=== PATIENT | male | born 1980 | race Caucasian/White ===

== ENCOUNTER 2016-10-31 17:52 | Inpatient (IN) | payer OTHER ==
--- NOTE | ~2016-10-31 | CR72 ---
[facility] A Service of [facility] RADIOLOGY TEXT RESULTS PATIENT: REBA PRESTON LOCATION: [facility] [address]64-85 : [birth year] UNIT #: [id number] AGE: [address]: Emperatriz Calles MD SEX: M ORDER DR: [id number] [facility] [address] [place], [place] [address] [id number] I MR#: [id number] Acc #: [id number] NAME: REBA PRESTON : 1980 SEX: M STUDY DATE/TIME: 10/31/2016 21:19 UNIT: [facility] ROOM: [id number] STUDY DESCRIPTION: CR Chest Single View Portable Attending Physician: Emperatriz Calles M.D. Ordering Physician: Audra Stewart M.D. Primary Care Physician: Gonzalez Yang M.D. MEDICAL IMAGING REPORT This report is preliminary unless electronic signature is present EXAM Portable chest x-ray 10/31/2016 HISTORY Fever. Seizure today. Weakness. FINDINGS AP radiograph of the chest is presented. Comparison 10/23/2014. No acute-appearing bony abnormality. Heart hifhcj-lg-utgqj limits of normal in size. Lung volumes moderate. Pulmonary vasculature is prominent, greater than anticipated for the relatively low lung volumes. Some degree of pulmonary vascular congestion is felt to be present. There are increased interstitial markings, more pronounced in the left than the right and there are some patchy densities at the left lung base. Findings concerning for mild pulmonary edema involving predominately the interstitium. Patchy densities at the left lung base probably combination of atelectasis and airspace edema. Given the patient's stated history of seizure and fever, correlate with any clinical concern for aspiration. No pleural effusion or pneumothorax. Dictated by... Shade Novoa M.D. THIS IS AN ELECTRONICALLY VERIFIED REPORT Shade Novoa M.D. at 11/01/2016 3:05 PM DELLA/racheal TD: 11/01/2016 01:56 JOB #: [id number] [facility] A Service of [facility] RADIOLOGY TEXT RESULTS PATIENT: REBA PRESTON LOCATION: [facility] [address]704-92 : 80 UNIT #: [id number] AGE: [address]: Emperatriz Calles MD SEX: M ORDER DR: MEDICAL IMAGING REPORT Page 1 of 1 COPY
--- NOTE | ~2016-10-31 | CT71 ---
[facility] A Service of [facility] RADIOLOGY TEXT RESULTS PATIENT: BALDEMAR PRESTON LOCATION: [facility] : 80 UNIT #: [id number] AGE: [address]: Emperatriz Calles MD SEX: M ORDER DR: [id number] [facility] [address] [place], [place] [address] [id number] I MR#: [id number] Acc #: [id number] NAME: BALDEMAR PRESTON : 1980 SEX: M STUDY DATE/TIME: 10/31/2016 17:20 UNIT: [facility] ROOM: [id number] STUDY DESCRIPTION: CT Head Wo Contrast Attending Physician: Emperatriz Calles M.D. Ordering Physician: Audra Stewart M.D. Primary Care Physician: Gonzalez Yang M.D. MEDICAL IMAGING REPORT This report is preliminary unless electronic signature is present EXAM Head CT no contrast, 10/31/[address] dated 10/23/2014 PROCEDURE Routine unenhanced head CT. This CT exam was performed with one or more of the following radiation dose reduction techniques: Automatic exposure control, adjustment of mA and/or kV according to patient size, and iterative reconstruction. Clinical History Seizure today, history of epilepsy. FINDINGS The skull base and calvarium are normal. There is a right ocular scleral band, but the extracranial soft tissues are otherwise unremarkable. Brain parenchymal density is normal. IMPRESSION 1. Normal negative unenhanced head CT. 2. Incidentally noted right ocular scleral band, but no acute abnormality is seen. Dictated by... Baldemar Perkins M.D. THIS IS AN ELECTRONICALLY VERIFIED REPORT Baldemar Perkins M.D. at 11/01/2016 3:54 PM TEV/psc [facility] A Service [facility] RADIOLOGY TEXT RESULTS PATIENT: BALDEMAR PRESTON LOCATION: [facility] : [birth year] UNIT #: [id number] AGE: [address]: Emperatriz Calles MD SEX: M ORDER DR: TD: 10/31/2016 21:58 JOB #: [id number] MEDICAL IMAGING REPORT Page 1 of 1 COPY
--- NOTE | ~2016-10-31 | CT114 ---
[facility] A Service of [facility] & [facility] RADIOLOGY TEXT RESULTS PATIENT: REBA PRESTON LOCATION: [facility] [address]-65 : 80 UNIT #: [id number] AGE: [address]: Emperatriz Calles MD SEX: M ORDER DR: [id number] [id number] [place], [place] [address] [id number] I MR#: [id number] Acc #: [id number] NAME: REBA PRESTON : 1980 SEX: M STUDY DATE/TIME: 10/31/2016 20:24 UNIT: [facility] ROOM: [id number] STUDY DESCRIPTION: CT Soft Tissue Neck W Cont Attending Physician: Emperatriz Calles M.D. Ordering Physician: Audra Stewart M.D. Primary Care Physician: Gonzalez Ynag M.D. MEDICAL IMAGING REPORT This report is preliminary unless electronic signature is present EXAM CT neck with contrast. DATE 10/31/2016 HISTORY 36-year-old male with right-side neck pain today. Seizure today. Soft tissue mass versus abscess. COMPARISON CT neck without and with contrast 08/26/2010. PROCEDURE 3 mm axial images from the base of the skull through the superior mediastinum after IV contrast administration. Sagittal and coronal reformed images were obtained. This CT exam was performed with one or more of the following radiation dose reduction techniques: automatic exposure control, adjustment of mA and/or kV according to patient size, and iterative reconstruction. FINDINGS An oval well-circumscribed 3.2 cm x 2.3 cm x 3.1 cm cystic or necrotic mass lesion is seen within the right mid neck just deep to the skin surface, superficial to the platysma. This is thought to correspond to the patient's site of palpable complaint. Shotty cervical adenopathy is present elsewhere within the neck, but no additional pathologic adenopathy is seen. The superior mediastinum appears within normal limits. The tonsillar pillars, larynx, epiglottis, all appear within normal limits. Parapharyngeal fat planes are preserved. Major vascular structures appear well opacified and patent. [facility] A Service of [facility] & [facility] RADIOLOGY TEXT RESULTS PATIENT: REBA PRESTON LOCATION: [facility] [address]37-56 : [birth year] UNIT #: [id number] AGE: [address]: Emperatriz Calles MD SEX: M ORDER DR: Bilateral parotid and submandibular glands and the thyroid gland are unremarkable. Mild generalized centrilobular emphysematous changes are seen in the imaged lung apices. There is mild accentuation of the normal cervical lordosis, with degenerative disc and endplate changes at C4-5 and C5-6. Prominent anterior osteophyte formation is present at C4-5. Posterior osteophyte formation is present at C3-4, C4-5, C5-6 and C6-7. There are surgical changes of the right globe. Jroh-aw-dfqxlebn ethmoid sinus mucosal thickening. Mastoid air cells appear clear. IMPRESSION 1. Cystic or necrotic superficial nodule in the right mid neck measuring 3.2 cm x 2.3 cm x 3.1 cm. It would be easily amenable to ultrasound-guided fine needle aspiration. 2. No additional soft tissue mass or adenopathy is seen elsewhere within the neck. 3. Surgical changes of the right globe. 4. Mild to xfjx-rx-qfkxiyhg ethmoid sinus mucosal thickening. 5. Degenerative changes of the cervical spine. 6. Mild centrilobular emphysematous changes in the imaged upper lungs. Dictated by... Elysia Garcia M.D. THIS IS AN ELECTRONICALLY VERIFIED REPORT Elysia Garcia M.D. at 11/01/2016 7:11 AM ALEX/racheal TD: 11/01/2016 00:48 JOB #: [id number] MEDICAL IMAGING REPORT Page 1 of 1 COPY
[2016-10-31 17:13] LABS: ARTERIAL BLD GAS O2 SATURATION 93.3 % (90.0-100.0); ARTERIAL BLOOD GAS CARBOXY HB 1.4 %sat (0.0-9.0); ARTERIAL BLOOD GAS HCO3 25.2 mmol/L; ARTERIAL BLOOD GAS MET HB 0.7 %sat (0.0-2.0); ARTERIAL BLOOD GAS PCO2 38.6 mmHg (35.0-45.0); ARTERIAL BLOOD GAS pH 7.423 (7.350-7.450)
[2016-10-31 17:14] LABS: ARTERIAL BLOOD GAS PO2 71.3 mmHg (80.0-100)
[2016-10-31 17:15] LABS: ARTERIAL BLOOD GAS ALLEN TEST NORMAL; ARTERIAL BLOOD GAS ART SITE LEFT RADIAL; ARTERIAL BLOOD GAS DELIVERY ROOM AIR; ARTERIAL DRAW? YES
[2016-10-31 17:20] LABS: URINE SOURCE CLEAN CATCH
[2016-10-31 17:43] LABS: BASOPHIL# 0.1 X10e3 (0-0.3); BASOPHIL% 0.3 % (0-2.5); DIFF IND YES; EOSINOPHIL# 0.1 X10e3 (0-0.7); EOSINOPHIL% 0.3 % (0.0-7.0); HEMATOCRIT 43.1 % (38.0-50.0); LYMPHOCYTE% 13.9 % (17.0-45.0); MEAN CELL VOLUME 96.5 FL (83-96); MEAN CORPUSCULAR HEMOGLOBIN 31.3 PG (28-34); MEAN CORPUSCULAR HGB CONC 32.4 g/dL (30-36); MEAN PLATELET VOLUME 9.1 FL (6.5-11.5); MONOCYTE# 1.3 X10e3 (0-1.0); MONOCYTE% 6.2 % (3.0-12.0); NEUTROPHIL# 16.9 X10e3 (1.5-7.1); NEUTROPHIL% 79.3 % (40-75); PLATELET COUNT 225 X10e3 (140-420); RED BLOOD COUNT 4.47 X10e (3.90-5.60); RED CELL DISTRIBUTION WIDTH 13.9 % (11.0-15.5); WHITE BLOOD COUNT 21.3 X10e3 (4.0-10.5)
[2016-10-31 17:52] LABS: URINE APPEARANCE CLOUDY; URINE BILIRUBIN NEG (NEG); URINE BLOOD 2+ (NEG); URINE COLOR YELLOW; URINE GLUCOSE NEG (NEG); URINE KETONE TRACE (NEG); URINE LEUKOCYTE ESTERASE NEG (NEG); URINE NITRATE NEG (NEG); URINE PROTEIN 2+ (NEG); URINE SPECIFIC GRAVITY 1.018 (1.003-1.035); URINE UROBILINOGEN 0.2 MG/DL (NEG)
[2016-10-31 17:54] LABS: URINE BACTERIA AUWI NEG (NEGATIVE); URINE SQUAMOUS EPITHELIAL CELL FEW /[HPF]
[2016-10-31 17:57] LABS: AMPHETAMINE NEG (NEG); BARBITURATES NEG (NEG); BENZODIAZEPINES NEG (NEG); COCAINE NEG (NEG); MARIJUANA NEG (NEG); OPIATES NEG (NEG); TRICYCLIC ANTIDEPRESSANTS NEG (NEG); U METHADONE NEG (NEG)
[2016-10-31 18:01] LABS: CULTURE INDICATED? NO; U HYALINE CASTS AUWI 0-2 /[LPF]; URINE RED BLOOD CELL CAST 0-2 /[HPF]
[2016-10-31 18:07] LABS: POC - CKMB 2.4 ng/mL (0.0-7.9); POC - TROPONIN <0.05 ng/mL (<=0.05)
[2016-10-31 18:17] LABS: PLATELET ESTIMATE NORMAL (NORMAL); RBC NORMAL YES
[2016-10-31 18:21] LABS: INR 0.9; PARTIAL THROMBOPLASTIN TIME 25.1 SECONDS (23.5-31.3); PROTHROMBIN TIME (PATIENT) 9.6 SECONDS (9.6-11.5)
[2016-10-31 18:40] LABS: CALCIUM SERUM 9.2 mg/dL (8.4-10.2); CARBON DIOXIDE 23 mmol/L (22-31); CHLORIDE 104 mmol/L (100-111); POTASSIUM 3.9 mmol/L (3.5-5.1); SODIUM 140 mmol/L (135-145)
[2016-10-31 18:52] LABS: ACETAMINOPHEN <10 ug/mL; ALBUMIN SERUM 4.3 g/dL (3.5-5.0); ALCOHOL BLOOD <5 mg/dL (0); ALKALINE PHOSPHATASE 79 U/L (32-92); ALT (SGPT) 30 U/L (10-40); AST (SGOT) 32 U/L (10-42); BILIRUBIN, DIRECT 0.1 mg/dL (0.0-0.2); BILIRUBIN,INDIRECT 0.2 mg/dL (0.0-0.9); BILIRUBIN,TOTAL 0.3 mg/dL (0.2-2.0); BLOOD UREA NITROGEN 10 mg/dL (9-23); BUN/CREATININE RATIO 11.11; CREATININE SERUM 0.9 mg/dL (0.6-1.4); DEPAKENE (VALPROIC ACID) <10 ug/mL (50-125); DILANTIN (PHENYTOIN) <2.5 ug/mL (10.0-20.0); GLOM FILT RATE Estimated 109.5 mL/min (>60); GLUCOSE FASTING 116 mg/dL (70-110); LIPASE 18 U/L (22-51); MAGNESIUM 2.2 mg/dL (1.6-3.0); PROTEIN TOTAL SERUM 7.4 g/dL (6.0-8.3)
[2016-10-31 22:34] LABS: INFLUENZA A NEG (NEG); INFLUENZA B NEG (NEG)
[2016-11-21] MEDS ORDERED: ABILIFY10 MG PO (21:09)
[2016-11-21] MEDS ORDERED: SEROQUEL400 MG PO (21:09)
[2016-11-21] MEDS ORDERED: KEPPRA500 M1 PO (21:10)
[2016-11-21] MEDS ORDERED: ARIPIPRAZOLE10 MG PO (21:10)
== END 2016-11-01 06:35 | disposition left against medical advice (07) | DRG 871 ==
LOC: CED 17:52 → CEDOF 21:40
PROVIDERS: Physician Assistant Medical; Student in an Organized Health Care Education/Training Program
PROC: 009U3ZX Drainage of Spinal Canal, Percutaneous Approach, Diagnostic (ICD-10-PCS; principal; 2016-10-31)
DX: A41.9 Sepsis, unspecified organism (principal); G03.9 Meningitis, unspecified; R41.82 Altered mental status, unspecified; G40.909 Epilepsy, unspecified, not intractable, without status epilepticus; F17.210 Nicotine dependence, cigarettes, uncomplicated
CPT/HCPCS: 36415; 36600; 51701; 62270; 70450; 70491; 71010; 80048; 80076; 80164; 80185; 80307; 81003; 82140; 82550; 82553; 82803; 83605; 83690; 83735; 83880; 84484; 85025; 85610; 85730; 87040; 87804; 96361; 96365; 96369; 96375; 99285; G0480; J0696; J1953; J2060; J2405; J3370; Q9967

== ENCOUNTER 2016-11-21 23:23 | Emergency (ER) | payer OTHER ==
--- NOTE | ~2016-11-21 | CT71 ---
[facility] A Service of [facility] RADIOLOGY TEXT RESULTS PATIENT: REBA PRESTON LOCATION: [facility] : [birth year] UNIT #: [id number] AGE: [address]: Audra Stewart MD SEX: M ORDER DR: [id number] [place] [id number] [facility] [place] [facility]. [place], [place] [address] [id number] E MR#: [id number] Acc #: [id number] NAME: REBA PRESTON : 1980 SEX: M STUDY DATE/TIME: 11/21/2016 21:57 UNIT: [facility] ROOM: STUDY DESCRIPTION: CT Head Wo Contrast Attending Physician: Audra Stewart M.D. Ordering Physician: Audra Stewart M.D. Primary Care Physician: Gonzalez Yang M.D. MEDICAL IMAGING REPORT This report is preliminary unless electronic signature is present EXAM CT head without contrast 11/21 09/02 HISTORY 36-year-old male with a seizure today. COMPARISON CT head 10/31/2016 TECHNIQUE Routine unenhanced axial images performed through the brain. This CT exam was performed with one or more of the following radiation dose reduction techniques: automatic control, adjustment of mA and/or kV according to patient size, and iterative reconstruction. FINDINGS No hemorrhage, acute infarction, mass lesion, or abnormal extraaxial fluid collection. No midline shift or focal mass effect. Ventricular system normal in size and configuration. No acute bony abnormality. Right scleral band. Mucosal thickening left maxillary sinus and left sphenoid sinus. Mucosal thickening left frontal sinus. Visualized mastoid air cells are clear. IMPRESSION 1. No acute intracranial abnormality. 2. Mucosal thickening left frontal sinus, left sphenoid sinus, and left maxillary sinus. 3. Right scleral band. Dictated by... Greg Perla M.D. THIS IS AN ELECTRONICALLY VERIFIED REPORT [facility] A Service of [facility] & [facility] RADIOLOGY TEXT RESULTS PATIENT: REBA PRESTON LOCATION: [facility] : 80 UNIT #: [id number] AGE: [address]: Audra Stewart MD SEX: M ORDER DR: Greg Perla M.D. at 11/22/2016 4:48 PM ESTEFANI/sherrie TD: 11/22/2016 03:45 JOB #: [id number] MEDICAL IMAGING REPORT Page 1 of 1 COPY
[2016-11-21 22:01] LABS: BASOPHIL% 0.1 % (0-2.5); DIFF IND NO; EOSINOPHIL# 0.2 X10e3 (0-0.7); EOSINOPHIL% 1.3 % (0.0-7.0); HEMATOCRIT 47.5 % (38.0-50.0); HEMOGLOBIN 15.8 gm/dL (13.0-16.0); LYMPHOCYTE# 2.7 X10e3 (1.0-3.5); MEAN CELL VOLUME 95.8 FL (83-96); MEAN CORPUSCULAR HEMOGLOBIN 31.8 PG (28-34); MEAN CORPUSCULAR HGB CONC 33.2 g/dL (30-36); MEAN PLATELET VOLUME 9.3 FL (6.5-11.5); MONOCYTE# 0.7 X10e3 (0-1.0); MONOCYTE% 5.3 % (3.0-12.0); NEUTROPHIL# 8.9 X10e3 (1.5-7.1); NEUTROPHIL% 71.3 % (40-75); PLATELET COUNT 203 X10e3 (140-420); RED BLOOD COUNT 4.96 X10e (3.90-5.60); RED CELL DISTRIBUTION WIDTH 13.8 % (11.0-15.5); WHITE BLOOD COUNT 12.5 X10e3 (4.0-10.5)
[2016-11-21 22:18] LABS: ALBUMIN SERUM 4.4 g/dL (3.5-5.0); ALKALINE PHOSPHATASE 90 U/L (32-92); ALT (SGPT) 31 U/L (10-40); AST (SGOT) 32 U/L (10-42); BILIRUBIN,TOTAL 0.3 mg/dL (0.2-2.0); BLOOD UREA NITROGEN 11 mg/dL (9-23); BUN/CREATININE RATIO 12.22; CALCIUM SERUM 9.4 mg/dL (8.4-10.2); CARBON DIOXIDE 26 mmol/L (22-31); CHLORIDE 103 mmol/L (100-111); CREATININE SERUM 0.9 mg/dL (0.6-1.4); GLOM FILT RATE Estimated 109.5 mL/min (>60); GLUCOSE FASTING 116 mg/dL (70-110); POTASSIUM 3.9 mmol/L (3.5-5.1); PROTEIN TOTAL SERUM 7.7 g/dL (6.0-8.3); SODIUM 141 mmol/L (135-145)
[2016-11-21 22:20] LABS: ALCOHOL BLOOD <5 mg/dL (0); BILIRUBIN,INDIRECT 0.2 mg/dL (0.0-0.9)
[2016-11-21 22:21] LABS: BILIRUBIN, DIRECT 0.1 mg/dL (0.0-0.2)
[~2016-11-21 23:23] MED LIST: ABILIFY10 MG PO; ARIPIPRAZOLE10 MG PO; KEPPRA500 M1 PO; SEROQUEL400 MG PO
== END 2016-11-22 01:27 | disposition home or self-care (01) ==
LOC: CED 23:23
PROVIDERS: Student in an Organized Health Care Education/Training Program
DX: G40.409 Other generalized epilepsy and epileptic syndromes, not intractable, without status epilepticus (principal); Z91.19 Patient's noncompliance with other medical treatment and regimen; Z79.899 Other long term (current) drug therapy; Z88.5 Allergy status to narcotic agent; Z88.6 Allergy status to analgesic agent
CPT/HCPCS: 36415; 70450; 80048; 80076; 85025; 96361; 96374; 99284; G0480; J1953